=== PATIENT | female | born 1960 | race Caucasian/White ===

== ENCOUNTER 2017-05-03 08:56 | Inpatient (IN) | payer BC ==
[~2017-05-03] VITALS: Ht 168.9 cm; Wt 57.6 kg
[~2017-05-03 08:56] MED LIST: ENBREL50 MG/1 ML SC; FISH OIL 1,2001 EAC3 PO; FOLIC ACID1 MG PO; METHOTREXATE2.5 MG PO; VITAMIN D32000 UNI1 PO
[2017-05-03 11:33] VITALS: BP 129/67
[2017-05-03 16:26] VITALS: BP 135/73
[2017-05-03 19:10] VITALS: BP 128/67
[2017-05-03 20:02] LABS: HEMATOCRIT 36.9 % (36.0-46.0); MCH 31.4 PG (29.0-34.0); MCV 89.8 FL (83-99); MEAN PLAT.VOLUME 10.4 uM^3 (9.5-12.4); PLATELET COUNT 184 K/uL (156-360); RBC DIS.WIDTH-CV 12.7 % (11.8-14.6); RBC DIS.WIDTH-SD 41.5 % (39-53); RED BLOOD COUNT 4.11 M/uL (3.80-5.20); WHITE BLOOD COUNT 6.4 K/uL (4.1-10.2)
[2017-05-03 20:12] VITALS: BP 163/78
[2017-05-03 20:27] LABS: ANION GAP 7 MEQ/L (2-14); CHLORIDE 105 MEQ/L (99-109); GFR ESTIMATE (CALCULATED) > 59 mL/min/; GLUCOSE 196 mg/dL (70-99); POTASSIUM 3.9 MEQ/L (3.7-5.4); SAMPLE HEMOLYSIS CHECK 0; SAMPLE ICTERIC CHECK 0; SAMPLE LIPEMIA CHECK 0; SODIUM 137 MEQ/L (136-147); UREA NITROGEN (BUN) 7 mg/dL (9-23)
[2017-05-04] VITALS (8 sets, daily range): BP systolic 109–131; BP diastolic 58–78
[2017-05-04 06:56] LABS: HEMATOCRIT 33.5 % (36.0-46.0); MCH 30.8 PG (29.0-34.0); MCHC 35.2 G/DL (30.0-36.0); MCV 87.5 FL (83-99); MEAN PLAT.VOLUME 10.6 uM^3 (9.5-12.4); PLATELET COUNT 201 K/uL (156-360); RBC DIS.WIDTH-CV 12.3 % (11.8-14.6); RBC DIS.WIDTH-SD 39.4 % (39-53); RED BLOOD COUNT 3.83 M/uL (3.80-5.20)
[2017-05-04 07:09] LABS: ANION GAP 7 MEQ/L (2-14); CHLORIDE 100 MEQ/L (99-109); GFR ESTIMATE (CALCULATED) > 59 mL/min/; GLUCOSE 123 mg/dL (70-99); POTASSIUM 3.6 MEQ/L (3.7-5.4); SAMPLE HEMOLYSIS CHECK 0; SAMPLE ICTERIC CHECK 0; SAMPLE LIPEMIA CHECK 0; SODIUM 131 MEQ/L (136-147); UREA NITROGEN (BUN) 6 mg/dL (9-23)
[2017-05-05 00:34] VITALS: BP 120/59
[2017-05-05 04:29] VITALS: BP 110/69
[2017-05-05 07:47] LABS: HEMATOCRIT 35.5 % (36.0-46.0); MCH 30.8 PG (29.0-34.0); MCHC 34.6 G/DL (30.0-36.0); MCV 88.8 FL (83-99); MEAN PLAT.VOLUME 10.7 uM^3 (9.5-12.4); PLATELET COUNT 202 K/uL (156-360); RBC DIS.WIDTH-CV 12.4 % (11.8-14.6); RBC DIS.WIDTH-SD 40.6 % (39-53); WHITE BLOOD COUNT 6.3 K/uL (4.1-10.2)
[2017-05-05 07:50] VITALS: BP 122/77
[2017-05-05 08:10] LABS: ANION GAP 8 MEQ/L (2-14); CHLORIDE 105 MEQ/L (99-109); GFR ESTIMATE (CALCULATED) > 59 mL/min/; GLUCOSE 91 mg/dL (70-99); POTASSIUM 3.2 MEQ/L (3.7-5.4); SAMPLE HEMOLYSIS CHECK 0; SAMPLE ICTERIC CHECK 0; SAMPLE LIPEMIA CHECK 0; SODIUM 140 MEQ/L (136-147); UREA NITROGEN (BUN) 8 mg/dL (9-23)
[2017-05-05] MEDS ORDERED: TRAMADOL HCL50 MG PO (09:11)
== END 2017-05-05 09:20 | disposition home or self-care (01) | DRG 741 ==
LOC: 2SOUTH 08:56 → 2EASTP 16:11
PROVIDERS: Obstetrics & Gynecology Gynecologic Oncology
DX: D06.9 Carcinoma in situ of cervix, unspecified (principal); B35.1 Tinea unguium; N93.8 Other specified abnormal uterine and vaginal bleeding; M06.9 Rheumatoid arthritis, unspecified; Z80.3 Family history of malignant neoplasm of breast; Z82.3 Family history of stroke; Z83.3 Family history of diabetes mellitus; Z80.8 Family history of malignant neoplasm of other organs or systems
CPT/HCPCS: 36415; 80048; 85027; 86870; 86900; 86901; 86905; 86920; 88307; 88342 TC; J0690; J1100; J1170; J1650; J1885; J2250; J2405; J2550; J2710; J2765; J3010

== ENCOUNTER 2018-05-11 18:37 | Emergency (ER) | payer BC ==
[~2018-05-11] VITALS: Ht 167.6 cm; Wt 58.6 kg
[~2018-05-11 18:37] MED LIST changes: +TRAMADOL HCL50 MG PO
[2018-05-11 18:40] VITALS: BP 129/83
== END 2018-05-11 20:13 | disposition left against medical advice (07) ==
LOC: EME 18:37
DX: S69.92XA Unspecified injury of left wrist, hand and finger(s), initial encounter (principal); Y93.55 Activity, bike riding; Z53.21 Procedure and treatment not carried out due to patient leaving prior to being seen by health care provider